=== PATIENT | female | born 1990 | race Caucasian/White ===

== ENCOUNTER 2018-11-24 17:31 | Emergency (ER) | payer OTHER ==
[~2018-11-24] VITALS: Ht 165.1 cm; Wt 83.0 kg
--- NOTE | 2018-11-24 17:52 | ED.ADGEN ---
Past History Past Medical History: Kidney Stones Adult General Chief Complaint Chief Complaint "... I ve been sick two or three days.. Nausea pain kind on my Rt. flank....".. HPI HPI Patient is a 28 year old female who presents with above hx and abdomen pain. Patient is pain is described as moderately severe. Nothing makes the pain better or worse. Pain seems to be located in right upper flank and abdomen. Patient denies any history of gallbladder disease cholecystitis, ulcerative or irritable bowel syndromes. Patient denies any history of pain in relation to certain foods. Patient denies any trauma. Patient denies any travel. Patient denies any history immunosuppression. Patient does have history history kidney stones age 17 when she got dehydrated. Patient advises this does not seem to be like a kidney stone pain.. Patient denies dysuria. No family history of irritable bowel, colitis, or gallbladder disease. Patient states pain has been persistent for the past 3 days. Seems to be getting much worse tonight. Patient has had normal stools. No history of dark or tarry stools. Patient history 3 term 3. Review of Systems Review of Systems Constitutional: Denies fever or chills [] Eyes: Denies change in visual acuity, redness, or eye pain [] HENT: Denies nasal congestion or sore throat [] Respiratory: Denies cough or shortness of breath [] Cardiovascular: No additional information not addressed in HPI [] GI: Complains of right upper quadrant abdominal pain, nausea,. Denies vomiting, bloody stools or diarrhea [] : Denies dysuria or hematuria [] Musculoskeletal: Denies back pain or joint pain [] Integument: Denies rash or skin lesions [] Neurologic: Denies headache, focal weakness or sensory changes [] Endocrine: Denies polyuria or polydipsia [] All other systems were reviewed and found to be within normal limits, except as documented in this note. Family History Family History Noncontributory Current Medications Current Medications Current Medications Medications (Trade) Dose Ordered Sig/Ina Start Time Stop Time Status Last Admin Dose Admin Ceftriaxone Sodium 1 gm/ Sodium Chloride 50 ml @ 100 mls/hr 1X ONCE 11/24/18 22:15 11/24/18 22:44 DC 11/24/18 22:11 100 MLS/HR Ceftriaxone Sodium (Rocephin) 1 gm STK-MED ONCE 11/24/18 22:06 11/24/18 22:07 DC Famotidine (Pepcid Vial) 20 mg 1X ONCE 11/24/18 18:15 11/24/18 18:30 DC 11/24/18 18:49 20 MG Info (Do NOT chart on this entry -- for MONITORING) 1 each PRN DAILY PRN 11/24/18 20:00 11/24/18 23:29 DC Iohexol (Omnipaque 240 Mg/ml) 30 ml 1X ONCE 11/24/18 20:30 11/24/18 20:32 DC 11/24/18 21:24 30 ML Iohexol (Omnipaque 300 Mg/ml) 75 ml 1X ONCE 11/24/18 19:45 11/24/18 19:48 DC 11/24/18 20:09 75 ML Lactated Ringer's 1,000 ml @ 1,000 mls/hr Q1H 11/24/18 18:09 11/24/18 19:08 DC 11/24/18 18:49 1,000 MLS/HR Metronidazole 100 ml @ 100 mls/hr 1X ONCE 11/24/18 22:15 11/24/18 23:14 DC 11/24/18 22:12 100 MLS/HR Ondansetron HCl (Zofran) 8 mg 1X ONCE 11/24/18 18:15 11/24/18 18:30 DC 11/24/18 18:48 8 MG Sodium Chloride 0 ml @ As Directed STK-MED ONCE 11/24/18 22:07 11/24/18 22:08 DC Allergies Allergies Allergies Coded Allergies Type Severity Reaction Last Updated Verified No Known Drug Allergies 11/24/18 No Physical Exam Physical Exam Constitutional: Well developed, well nourished, moderately acute distress, non- toxic appearance. [] HENT: Normocephalic, atraumatic, bilateral external ears normal, oropharynx moist, no oral exudates, nose normal. [] Eyes: PERRLA, EOMI, conjunctiva normal, no discharge. [] Neck: Normal range of motion, no tenderness, supple, no stridor. [] Cardiovascular:Heart rate regular rhythm, no murmur [] Lungs & Thorax: Bilateral breath sounds equal at apex on auscultation [] Abdomen: Bowel sounds normal, soft, right upper quadrant and flank tenderness, no masses, no pulsatile masses. [] Rebound to right upper quadrant. Patient declines rectal pelvic exam at this time. Skin: Warm, dry, no erythema, no rash. [] Back: No tenderness, right upper CVA tenderness. [] Extremities: No tenderness, no cyanosis, no clubbing, ROM intact, no edema. [] No psoas sign on heel tap or obturator Neurologic: Alert and oriented X 3, normal motor function, normal sensory function, no focal deficits noted. [] Psychologic: Affect anxious, judgement normal, mood normal. [] Current Patient Data Vital Signs Vital Signs Date Time Temp Pulse Resp B/P (MAP) Pulse Ox O2 Delivery O2 Flow Rate FiO2 11/24/18 19:16 114 20 120/74 (89) 96 Room Air 11/24/18 17:31 98.9 Lab Results Laboratory Tests Test 11/24/18 17:38 11/24/18 17:52 11/24/18 17:55 Urine Collection Type Unknown Urine Color Yellow Urine Clarity Clear Urine pH 7.5 Urine Specific [place] 1.015 Urine Protein Neg (NEG-TRACE) Urine Glucose (UA) Neg mg/dL (NEG) Urine Ketones (Stick) Neg mg/dL (NEG) Urine Blood Small (NEG) Urine Nitrite Neg (NEG) Urine Bilirubin Neg (NEG) Urine Urobilinogen Dipstick 0.2 mg/dL (0.2 mg/dL) Urine Leukocyte Esterase Neg (NEG) Urine RBC Occ /HPF (0-2) Urine WBC 0 /HPF (0-4) Urine Squamous Epithelial Cells Occ /LPF Urine Bacteria 0 /HPF (0-FEW) Urine Opiates Screen Neg (NEG) Urine Methadone Screen Neg (NEG) Urine Barbiturates Neg (NEG) Urine Phencyclidine Screen Neg (NEG) Urine Amphetamine/Methamphetamine Neg (NEG) Urine Benzodiazepines Screen Neg (NEG) Urine Cocaine Screen Neg (NEG) Urine Cannabinoids Screen Neg (NEG) Urine Ethyl Alcohol Neg (NEG) POC Urine HCG, Qualitative hcg negative (Negative) White Blood Count 13.1 x10^3/uL (4.0-11.0) H Red Blood Count 4.82 x10^6/uL (3.50-5.40) Hemoglobin 13.7 g/dL (12.0-15.5) Hematocrit 41.3 % (36.0-47.0) Mean Corpuscular Volume 86 fL (79-100) Mean Corpuscular Hemoglobin 28 pg (25-35) Mean Corpuscular Hemoglobin Concent 33 g/dL (31-37) Red Cell Distribution Width 13.1 % (11.5-14.5) Platelet Count 249 x10^3/uL (140-400) Neutrophils (%) (Auto) 71 % (31-73) Lymphocytes (%) (Auto) 20 % (24-48) L Monocytes (%) (Auto) 8 % (0-9) Eosinophils (%) (Auto) 1 % (0-3) Basophils (%) (Auto) 1 % (0-3) Neutrophils # (Auto) 9.3 x10^3uL (1.8-7.7) H Lymphocytes # (Auto) 2.6 x10^3/uL (1.0-4.8) Monocytes # (Auto) 1.0 x10^3/uL (0.0-1.1) Eosinophils # (Auto) 0.2 x10^3/uL (0.0-0.7) Basophils # (Auto) 0.1 x10^3/uL (0.0-0.2) Prothrombin Time 10.1 SEC (9.4-11.4) Prothrombin Time INR 1.0 (0.9-1.1) PTT 28 SEC (23-33) Sodium Level 137 mmol/L (136-145) Potassium Level 3.7 mmol/L (3.5-5.1) Chloride Level 102 mmol/L (98-107) Carbon Dioxide Level 26 mmol/L (21-32) Anion Gap 9 (6-14) Blood Urea Nitrogen 10 mg/dL (7-20) Creatinine 0.6 mg/dL (0.6-1.0) Estimated GFR (Cockcroft-Gault) 120.8 Glucose Level 99 mg/dL (70-99) Calcium Level 9.2 mg/dL (8.5-10.1) Total Bilirubin 0.3 mg/dL (0.2-1.0) Direct Bilirubin 0.1 mg/dL (0.0-0.2) Aspartate Amino Transferase (AST) 10 U/L (15-37) L Alanine Aminotransferase (ALT) 20 U/L (14-59) Alkaline Phosphatase 53 U/L (46-116) Total Protein 7.2 g/dL (6.4-8.2) Albumin 3.9 g/dL (3.4-5.0) Amylase Level 33 U/L (25-115) Lipase 132 U/L (73-393) EKG EKG [] Radiology/Procedures Radiology/Procedures My interpretation acute abdomen shows no acute cardiopulmonary findings. Nonspecific bowel gas pattern. CT of abdomen shows[][address] [address] IMAGING REPORT Signed PATIENT: IGNACIA PUENTE ACCOUNT: [id number] : 1990 LOCATION: ER AGE: 28 SEX: F EXAM STATUS: REG ER ORD. PHYSICIAN: JESSICA CARTER MD REASON: Omni 300,75ml IV/Omni 240,30ml PO/RLQ Abdominal pain PROCEDURE: CT ABD PELV W/ORAL&IV CONTRAST PQRS Compliance Statement: One or more of the following individualized dose reduction techniques were utilized for this examination: 1. Automated exposure control 2. Adjustment of the mA and/or kV according to patient size 3. Use of iterative reconstruction technique CT abdomen/pelvis with contrast 11/24/2018 8:08 PM INDICATION: Right lower quadrant abdominal pain COMPARISON: None available TECHNIQUE: Multiple axial CT images of the abdomen and pelvis were obtained after the intravenous administration of nonionic contrast. Coronal and sagittal reformats are provided. FINDINGS: Visualized portions of the lung bases are clear. Heart size is within normal limits. No suspicious hepatic masses are identified. Liver is homogeneous in enhancement. Spleen, bilateral adrenal glands, and pancreas are normal in appearance. Gallbladder is present without adjacent inflammatory changes. Abdominal aorta is normal in course and caliber. There are no pathologically enlarged lymph nodes in abdomen and pelvis. There is no free intraperitoneal air. The kidneys enhance symmetrically. There is no suspicious renal mass. There is no hydronephrosis. There are no suspected calculi within the kidneys, ureters or urinary bladder. Urinary bladder is within normal limits given degree of distention. Uterus and adnexa are normal by CT. Follicular changes are identified within the adnexa bilaterally. No suspicious osseous amount is identified. Oral contrast was administered. There is focal circumferential wall thickening with pericolonic inflammatory changes involving the splenic flexure. Findings involve a 8.5 cm segment of colon. Findings are centered around to inflamed diverticula suspicious for diverticulitis. There is no evidence for perforation. No peridiverticular abscess. Appendix is normal. IMPRESSION: 1. Findings are most suspicious for diverticulitis at the splenic flexure involving an 8.5 cm segment of colon. Follow-up endoscopic evaluation may be of benefit to assess for underlying mucosal abnormality. No peridiverticular abscess nor pneumoperitoneum. Electronically signed by: Roberto Carlos Vásquez MD (11/24/2018 9:47 PM) [facility] DICTATED AND SIGNED BY: ROBERTO CARLOS VÁSQUEZ MD DATE: 11/24/182146 CC: JESSICA CARTER MD; PCP,NO ~ Course & Med Decision Making Course & Med Decision Making Pertinent Labs and Imaging studies reviewed. (See chart for details) She stay on clear fluid diet for the next couple days. No solid or milk products. Allow bowel rest. Patient take Keflex 500x3 times a day and Flagyl 500x33 times a day. Follow-up primary care. Avoid constipation. Follow-up primary care. Get scheduled for outpatient colonoscopy. Return if any concerns. [] Final Impression Final Impression 1. Abdomen pain[] 2. Diverticulitis Dragon Disclaimer Dragon Disclaimer This electronic medical record was generated, in whole or in part, using a voice recognition dictation system. Discharge Summary Visit Information Final Diagnosis Problems Medical Problems: (1) Diverticulitis large intestine Status: Acute (2) Pain in the abdomen Status: Acute Brief Hospital Course Allergies Allergies Coded Allergies Type Severity Reaction Last Updated Verified No Known Drug Allergies 11/24/18 No Vital Signs Vital Signs Date Time Temp Pulse Resp B/P (MAP) Pulse Ox O2 Delivery O2 Flow Rate FiO2 11/24/18 19:16 114 20 120/74 (89) 96 Room Air 11/24/18 17:31 98.9 Lab Results Laboratory Tests Test 11/24/18 17:38 11/24/18 17:52 11/24/18 17:55 Urine Collection Type Unknown Urine Color Yellow Urine Clarity Clear Urine pH 7.5 Urine Specific [place] 1.015 Urine Protein Neg (NEG-TRACE) Urine Glucose (UA) Neg mg/dL (NEG) Urine Ketones (Stick) Neg mg/dL (NEG) Urine Blood Small (NEG) Urine Nitrite Neg (NEG) Urine Bilirubin Neg (NEG) Urine Urobilinogen Dipstick 0.2 mg/dL (0.2 mg/dL) Urine Leukocyte Esterase Neg (NEG) Urine RBC Occ /HPF (0-2) Urine WBC 0 /HPF (0-4) Urine Squamous Epithelial Cells Occ /LPF Urine Bacteria 0 /HPF (0-FEW) Urine Opiates Screen Neg (NEG) Urine Methadone Screen Neg (NEG) Urine Barbiturates Neg (NEG) Urine Phencyclidine Screen Neg (NEG) Urine Amphetamine/Methamphetamine Neg (NEG) Urine Benzodiazepines Screen Neg (NEG) Urine Cocaine Screen Neg (NEG) Urine Cannabinoids Screen Neg (NEG) Urine Ethyl Alcohol Neg (NEG) Bedside Urine HCG, Qualitative hcg negative (Negative) White Blood Count 13.1 x10^3/uL (4.0-11.0) Red Blood Count 4.82 x10^6/uL (3.50-5.40) Hemoglobin 13.7 g/dL (12.0-15.5) Hematocrit 41.3 % (36.0-47.0) Mean Corpuscular Volume 86 fL (79-100) Mean Corpuscular Hemoglobin 28 pg (25-35) Mean Corpuscular Hemoglobin Concent 33 g/dL (31-37) Red Cell Distribution Width 13.1 % (11.5-14.5) Platelet Count 249 x10^3/uL (140-400) Neutrophils (%) (Auto) 71 % (31-73) Lymphocytes (%) (Auto) 20 % (24-48) Monocytes (%) (Auto) 8 % (0-9) Eosinophils (%) (Auto) 1 % (0-3) Basophils (%) (Auto) 1 % (0-3) Neutrophils # (Auto) 9.3 x10^3uL (1.8-7.7) Lymphocytes # (Auto) 2.6 x10^3/uL (1.0-4.8) Monocytes # (Auto) 1.0 x10^3/uL (0.0-1.1) Eosinophils # (Auto) 0.2 x10^3/uL (0.0-0.7) Basophils # (Auto) 0.1 x10^3/uL (0.0-0.2) Prothrombin Time 10.1 SEC (9.4-11.4) Prothromb Time International Ratio 1.0 (0.9-1.1) Activated Partial Thromboplast Time 28 SEC (23-33) Sodium Level 137 mmol/L (136-145) Potassium Level 3.7 mmol/L (3.5-5.1) Chloride Level 102 mmol/L (98-107) Carbon Dioxide Level 26 mmol/L (21-32) Anion Gap 9 (6-14) Blood Urea Nitrogen 10 mg/dL (7-20) Creatinine 0.6 mg/dL (0.6-1.0) Estimated GFR (Cockcroft-Gault) 120.8 Glucose Level 99 mg/dL (70-99) Calcium Level 9.2 mg/dL (8.5-10.1) Total Bilirubin 0.3 mg/dL (0.2-1.0) Direct Bilirubin 0.1 mg/dL (0.0-0.2) Aspartate Amino Transf (AST/SGOT) 10 U/L (15-37) Alanine Aminotransferase (ALT/SGPT) 20 U/L (14-59) Alkaline Phosphatase 53 U/L (46-116) Total Protein 7.2 g/dL (6.4-8.2) Albumin 3.9 g/dL (3.4-5.0) Amylase Level 33 U/L (25-115) Lipase 132 U/L (73-393) Brief Hospital Course Ms. Puente is a 28 old female who presented with suspect diverticulitis Discharge Information Condition at Discharge: Improved, Stable Disposition/Orders: D/C to Home Dischare Medications Current Medications Lactated Ringer's 1,000 ml @ 1,000 mls/hr Q1H IV Last administered on 11/24/18at 18:49; Admin Dose 1,000 MLS/HR; Start 11/24/18 at 18:09; Stop 11/24/18 at 19:08; Status DC Ondansetron HCl (Zofran) 8 mg 1X ONCE IV Last administered on 11/24/18at 18:48; Admin Dose 8 MG; Start 11/24/18 at 18:15; Stop 11/24/18 at 18:30; Status DC Famotidine (Pepcid Vial) 20 mg 1X ONCE IVP Last administered on 11/24/18at 18:49; Admin Dose 20 MG; Start 11/24/18 at 18:15; Stop 11/24/18 at 18:30; Status DC Iohexol (Omnipaque 300 Mg/ml) 75 ml 1X ONCE IV Last administered on 11/24/18at 20:09; Admin Dose 75 ML; Start 11/24/18 at 19:45; Stop 11/24/18 at 19:48; Status DC Info (Do NOT chart on this entry -- for MONITORING) 1 each PRN DAILY PRN MC SEE COMMENTS; Start 11/24/18 at 20:00; Stop 11/24/18 at 23:29; Status DC Iohexol (Omnipaque 240 Mg/ml) 30 ml 1X ONCE PO Last administered on 11/24/18at 21:24; Admin Dose 30 ML; Start 11/24/18 at 20:30; Stop 11/24/18 at 20:32; Status DC Ceftriaxone Sodium 1 gm/ Sodium Chloride 50 ml @ 100 mls/hr 1X ONCE IV Last administered on 11/24/18at 22:11; Admin Dose 100 MLS/HR; Start 11/24/18 at 22:15; Stop 11/24/18 at 22:44; Status DC Metronidazole 100 ml @ 100 mls/hr 1X ONCE IV Last administered on 11/24/18at 22:12; Admin Dose 100 MLS/HR; Start 11/24/18 at 22:15; Stop 11/24/18 at 23:14; Status DC Sodium Chloride 50 ml @ As Directed STK-MED ONCE .ROUTE ; Start 11/24/18 at 22:06; Stop 11/24/18 at 22:07; Status DC Ceftriaxone Sodium (Rocephin) 1 gm STK-MED ONCE .ROUTE ; Start 11/24/18 at 22:06; Stop 11/24/18 at 22:07; Status DC Sodium Chloride 0 ml @ As Directed STK-MED ONCE .ROUTE ; Start 11/24/18 at 22:07; Stop 11/24/18 at 22:08; Status DC Active Scripts Active Diflucan (Fluconazole) 100 Mg Tablet 100 Mg PO DAILY 3 Days Flagyl (Metronidazole) 500 Mg Tablet 500 Mg PO TID Zofran (Ondansetron Hcl) 8 Mg Tablet 8 Mg PO QIDPRN PRN Keflex (Cephalexin) 500 Mg Capsule 500 Mg PO TID Hydrocodone-Ibuprofen 7.5-200 (Hydrocodone/Ibuprofen) 1 Each Tablet 1 Tab PO PRN Q6HRS PRN Dragon Disclaimer This chart was dictated in whole or in part using Voice Recognition software in a busy, high-work load, and often noisy Emergency Department environment. It may contain unintended and wholly unrecognized errors or omissions. JESSICA CARTER MD Nov 24, 2018 17:52
[2018-11-24] MEDS ORDERED: IV RINGERS SOLUTION,LACTATED 1,000 ML IV SCH (18:09)
[2018-11-24 18:13] LABS: BILIRUBIN,URINE NEG (NEG); CLARITY,URINE CLEAR; COLOR,URINE YELLOW; GLUCOSE,URINE NEG (NEG)
[2018-11-24 18:14] LABS: BACTERIA,URINE 0 /HPF (0-FEW); NITRITE,URINE NEG (NEG); RBC,URINE OCC /HPF (0-2); SQUAMOUS EPITHELIAL CELL,UR OCC /LPF; UROBILINOGEN,URINE 0.2 mg/dL (0.2 mg/dL); WBC,URINE 0 /HPF (0-4)
[2018-11-24] MEDS ORDERED: ONDANSETRON PF 4 MG/2 ML VIAL. IV ONE (18:15)
[2018-11-24] MEDS ORDERED: FAMOTIDINE 20 MG/2 ML VIAL IVP ONE (18:15)
[2018-11-24 18:20] LABS: AMPHETAMINE/METHAMPHETAMINE NEG (NEG); BARBITURATES NEG (NEG); BENZODIAZEPINES NEG (NEG); CANNABINOIDS NEG (NEG); COCAINE NEG (NEG); METHADONE NEG (NEG); OPIATES NEG (NEG); PHENCYCLIDINE NEG (NEG)
[2018-11-24 18:23] LABS: BASO # 0.1 x10^3/uL (0.0-0.2); BASO % 1 % (0-3); EOS # 0.2 x10^3/uL (0.0-0.7); EOS % 1 % (0-3); HEMATOCRIT 41.3 % (36.0-47.0); HEMOGLOBIN 13.7 g/dL (12.0-15.5); LYMPH # 2.6 x10^3/uL (1.0-4.8); LYMPH % 20 % (24-48); MEAN CORPUSCULAR HEMOGLOBIN 28 pg (25-35); MEAN CORPUSCULAR HGB CONC 33 g/dL (31-37); MEAN CORPUSCULAR VOLUME 86 fL (79-100); MONO % 8 % (0-9); NEUT # 9.3 x10^3uL (1.8-7.7); NEUT % 71 % (31-73); PLATELET COUNT 249 x10^3/uL (140-400); RED BLOOD COUNT 4.82 x10^6/uL (3.50-5.40); RED CELL DISTRIBUTION WIDTH 13.1 % (11.5-14.5); WHITE BLOOD COUNT 13.1 x10^3/uL (4.0-11.0)
[2018-11-24 18:31] LABS: ALBUMIN 3.9 g/dL (3.4-5.0); CALCIUM 9.2 mg/dL (8.5-10.1); CREATININE 0.6 mg/dL (0.6-1.0); DIRECT BILIRUBIN 0.1 mg/dL (0.0-0.2); GFR 120.8; POTASSIUM 3.7 mmol/L (3.5-5.1); TOTAL BILIRUBIN 0.3 mg/dL (0.2-1.0); TOTAL PROTEIN 7.2 g/dL (6.4-8.2)
[2018-11-24 19:16] VITALS: BP 120/74
[2018-11-24] MEDS ORDERED: IOHEXOL 300 MG/ML 75 ML VIAL. IV ONE (19:45)
[2018-11-24] MEDS ORDERED: CONTRAST GIVEN MC PRN (20:00)
[2018-11-24] MEDS ORDERED: IOHEXOL 240 MG/ML 50ML VIAL. PO ONE (20:30)
--- NOTE | 2018-11-24 21:50 | RAD ---
PQRS Compliance Statement: One or more of the following individualized dose reduction techniques were utilized for this examination: 1. Automated exposure control 2. Adjustment of the mA and/or kV according to patient size 3. Use of iterative reconstruction technique CT abdomen/pelvis with contrast 11/24/2018 8:08 PM INDICATION: Right lower quadrant abdominal pain COMPARISON: None available TECHNIQUE: Multiple axial CT images of the abdomen and pelvis were obtained after the intravenous administration of nonionic contrast. Coronal and sagittal reformats are provided. FINDINGS: Visualized portions of the lung bases are clear. Heart size is within normal limits. No suspicious hepatic masses are identified. Liver is homogeneous in enhancement. Spleen, bilateral adrenal glands, and pancreas are normal in appearance. Gallbladder is present without adjacent inflammatory changes. Abdominal aorta is normal in course and caliber. There are no pathologically enlarged lymph nodes in abdomen and pelvis. There is no free intraperitoneal air. The kidneys enhance symmetrically. There is no suspicious renal mass. There is no hydronephrosis. There are no suspected calculi within the kidneys, ureters or urinary bladder. Urinary bladder is within normal limits given degree of distention. Uterus and adnexa are normal by CT. Follicular changes are identified within the adnexa bilaterally. No suspicious osseous amount is identified. Oral contrast was administered. There is focal circumferential wall thickening with pericolonic inflammatory changes involving the splenic flexure. Findings involve a 8.5 cm segment of colon. Findings are centered around to inflamed diverticula suspicious for diverticulitis. There is no evidence for perforation. No peridiverticular abscess. Appendix is normal. IMPRESSION: 1. Findings are most suspicious for diverticulitis at the splenic flexure involving an 8.5 cm segment of colon. Follow-up endoscopic evaluation may be of benefit to assess for underlying mucosal abnormality. No peridiverticular abscess nor pneumoperitoneum. Electronically signed by: Ana Brewster MD (11/24/2018 9:47 PM) [facility]
[2018-11-24] MEDS ORDERED: IV NORMAL SALINE 50ML 50 ML ONE (22:06)
[2018-11-24] MEDS ORDERED: cefTRIAXone SODIUM 1 GM VIAL ONE (22:06)
[2018-11-24] MEDS ORDERED: IV NORMAL SALINE 100ML 0 ML ONE (22:07)
[2018-11-24] MEDS ORDERED: ONDA8TAB9 PO (22:09)
[2018-11-24] MEDS ORDERED: METR500T PO (22:09)
[2018-11-24] MEDS ORDERED: HYDR-1179 PO (22:09)
[2018-11-24] MEDS ORDERED: CEPH-264 PO (22:09)
[2018-11-24] MEDS ORDERED: FLUC100T7 PO (22:09)
--- NOTE | 2018-11-24 23:58 | RAD ---
ACUTE ABDOMEN SERIES History: Abdominal pain. Comparison: CT abdomen and pelvis with contrast, performed later same day. Findings: Frontal chest and supine and upright views of the abdomen. Cardiomediastinal silhouette is normal. There is no pleural effusion or pneumothorax. The lungs are clear. No pneumoperitoneum is identified. No dilated air-filled loops of bowel are seen. There is stool in the right colon. Bowel gas pattern is nonobstructive. No obvious organomegaly. Bones unremarkable. IMPRESSION: 1. No acute cardiopulmonary process. 2. Nonobstructive bowel gas pattern. Electronically signed by: Michael Wynne MD (11/24/2018 11:55 PM) [facility]
== END 2018-11-24 23:25 | disposition home or self-care (01) ==
LOC: ER 17:31
DX: K57.30 Diverticulosis of large intestine without perforation or abscess without bleeding (principal); Z87.442 Personal history of urinary calculi
CPT/HCPCS: 36415; 74022; 74177; 80048; 80076; 80307; 81001; 81025; 82150; 83690; 85025; 85610; 85730; 96365; 96375; 99285; J0696; J2405; J3490; J7120; Q9966; Q9967